=== PATIENT | male | born 2000 | race African-American/Black ===

== ENCOUNTER 2022-01-02 20:19 | Emergency (ER) | payer BC ==
[~2022-01-02] VITALS: Ht 185.4 cm; Wt 108.3 kg
[2022-01-02 22:14] VITALS: BP 147/86
[2022-01-03] MEDS ORDERED: IBUP-2029 MT (01:10)
== END 2022-01-03 01:20 | disposition home or self-care (01) ==
LOC: ER 20:19
DX: S63.693A Other sprain of left middle finger, initial encounter (principal); X58.XXXA Exposure to other specified factors, initial encounter; Y93.89 Activity, other specified; Y92.89 Other specified places as the place of occurrence of the external cause; Y99.8 Other external cause status
CPT/HCPCS: 29130; 73130; 99283